=== PATIENT | male | born 1970 | race Caucasian/White ===

== ENCOUNTER 2023-11-24 14:28 | Emergency (ER) | payer OTHER, SELFPAY ==
[2023-11-24 14:30] VITALS: BP 156/89; PULSE 63; RESP 18; TEMP 36.8; O2SAT 98; BMI 25.5
--- NOTE | 2023-11-24 15:36 | EX.ED.GENINJ ---
HPI History of Present Illness Chief Complaint: Laceration [facility] Medical History no medical history Home Medications ?Medication ?Instructions ?Recorded ?Last Taken ?Type sulfamethoxazole 800 1 tab PO BID #14 tabs 11/24/23 Unknown Rx mg-trimethoprim 160 mg tablet (Bactrim DS) Allergy/AdvReac Type Severity Reaction Status Date / Time Penicillins Allergy RASH Verified 11/24/23 14:30 Social History Smoking Status: Never smoker EXAM Physical Exam Const Vital Signs: 11/24/23 14:30 Temperature 98.2 F Temperature Source Temporal Pulse Rate 63 Respiratory Rate 18 Blood Pressure 156/89 H Blood Pressure Mean 111 Pulse Ox 98 Oxygen Delivery Method Room Air MDM [facility] MDM Narrative Medical decision making narrative: HISTORY OF PRESENT ILLNESS: 53-year-old male presents with left thumb/hand injury. Notes he cut his hand with a hook knife while shoeing a horse. Notes he is right-hand dominant. Last tetanus was greater than 5 years ago. REVIEW OF SYSTEMS: Pertinent positives: Hand pain Pertinent negatives: Numbness, tingling, loss of sensation PHYSICAL EXAM: Nursing triage notes reviewed, Vital signs reviewed Constitutional: please see mdm Extremities: No edema Neuro: Intact 5/5 strength with ok sign (median), intact finger abduction (ulnar) intact wrist extension (radial n). Intact sensation in the radial, ulnar, and median nerve distributions. Skin: MEDICAL DECISION MAKING: Chief Complaint: Hand laceration External records reviewed: No recent ED visits Factors affecting care: none Social determinants of health: none History obtained from others: none Consults: none [facility] Narrative: The patient was hemodynamically stable, afebrile and nontoxic-appearing. Exam with linear laceration to left palm open see thenar eminence), no obvious deeper involvement, no tendons involved, no foreign bodies The patient suffered lacerations to the left palm On exam there was no evidence of foreign bodies. There was no evidence of neurovascular injury. Patient had a normal distal vascular exam, and had intact ROM and sensation. There was also no evidence of tendon injury, with normal distal full range of motion, flexion, extension, abduction, abduction. There is no evidence of local joint space involvement at this time. Wound care applied (irrigation and/or local cleansing solution). Laceration repair was then performed please see procedure note. The patient was given signs and symptoms warnings for infection, such as increasing pain, redness, swelling, associated heat, pus or fever. Patient was given instructions for timely follow-up for removal. Patient agreed with the plan of care Procedure: Laceration repair. The procedure was performed by myself. Indication: Wound repair Risks and benefits: risks, benefits and alternatives were discussed Consent: Consent was obtained. Wound Details: Approximate 4 cm linear laceration noted to the thenar eminence, proximal millimeter deep, no foreign bodies noted, no tenderness involvement Anesthesia: 1% lidocaine without epinephrine Wound prep: Patient was prepped and draped in the usual sterile fashion. Tetanus: Updated today Irrigation Solution: Saline Wound Preparation: Irrigated approximately 500 cc of normal saline, cleansed with chlorhexidine The wound was explored to its base in a bloodless field. Procedure Description: A placed eight 5-0 Chromic Gut sutures with close approximation Patient tolerated the procedure well with no immediate complications I updated tetanus, gave oral Bactrim and a prescription for Bactrim for infection prophylaxis. Strict return precautions were discussed. The patient and/or family, caregivers express understanding. The patient and/or family, caregivers agrees with the plan. Shared decision making: I will have a discussion with the patient and or visitors regarding risk/benefits of further testing or admission. They will be made aware of of the risk/benefits inherent in this decision they will be given the opportunity to voice understanding. Total critical care time today provided was at least 0 minutes. This excludes separately billable procedures. Critical care time (if documented) is secondary to the patient having high probability of clinically significant/life threatening deterioration in the patient's condition which required my urgent intervention. Impression: 1. Hand laceration 2. Hand pain Dispo: Discharge home This note was generated with [employer] dictation software. It may contain incorrect words, spelling, and punctuation that were not noted in review of the chart prior to signing. Discharge Plan Triage Chief Complaint: Laceration ED Provider: Santiago Florez Dx/Rx/DC Orders Instructions: ED Laceration Extremity Prescriptions: New sulfamethoxazole-trimethoprim [Bactrim DS] 800-160 mg tablet 1 tab PO BID Qty: 14 0RF Primary Care Provider: Care Physician,No Primary Referrals: Caesar Morillo MD [Med Staff - [employer]] - Activity Restrictions/Additional Instructions: Thank you for trusting us with your care today! Please take Tylenol (2 pills, 650 mg), ibuprofen (2 pills, 400 mg) every 6 hours as needed for pain and fever control. Please take antibiotics daily as prescribed until course complete. Please return to the emergency department if your symptoms change or worsen. Specifically develop redness, white-yellow discharge, warmth, increasing pain disease or signs of infection. Please cleanse your wound daily. For the first 72 hours please use peroxide and topical antimicrobial ointment such as Neosporin. After which time soap and water should suffice. Please follow with your primary care physician for further outpatient evaluation and management. Print Language: Iraqi Disposition Disposition: Home, Self Care
[2023-11-24] MEDS: Diphth,Pertuss(Acell),Tet Vac 0.5 ML Vial IM (16:17)
[2023-11-24] MEDS: Smz/Tmp Ds Tablet 1 TABLET PO (16:17)
== END 2023-11-24 16:47 | disposition home or self-care (01) ==
PROVIDERS: Emergency Provider Emergency Medicine; Visit Provider Emergency Medicine
DX: S61.412A Laceration without foreign body of left hand, initial encounter (principal); W26.0XXA Contact with knife, initial encounter; Z23 Encounter for immunization
CPT/HCPCS: 12002; 90471; 90715; 99283

== ENCOUNTER 2025-01-15 06:52 | Day surgery (SDC) | payer OTHER, SELFPAY ==
[2025-01-15] VITALS (8 sets, daily range): BP systolic 113–125; BP diastolic 77–85; PULSE 54–61; RESP 16; TEMP 36.2–36.4; O2SAT 99–100; BMI 23.8
--- OUTSIDE RECORDS SUMMARY | 2025-01-15 07:00 | XMS RPT_ITS | CCD ---
Author Organization [employer] [facility] Care Team Providers Care Clinical Scientist Name Role Phone FriendKaylaPerico Attending Unavailable Care Physician, No Primary Referring Unava ilable Care Physician, No Primary Primary Care Unava ilable Allergies Allergy Classification Reported Allergen(s) Allergy Type Date of Onset Reaction(s) Facility (1 source) Penicillins Drug allergy (disorder) 01-10-2025 [facility] Repository Encounters Encounter Date Encounter Type Care Provider Facility Start: 01-15-2025 ambulatory Perico Friend Facility :[facility] Payers Date Payer Category Payer Self-pay 2024 Unknown [id number] Unknown [id number] Summary Purpose Family History No Family History Records Found Advance Directives No Advanced Directives Records Found Additional Source Comments (unrecognized sect ion and content) No Status Records Found INFORMATION SOURCE (unrecogn ized section and content) DATE CREATED AUTHOR 01/12/2025 [facility] FOR RECORDS PERTAINING TO PATIENTS WHO ARE OR HAVE BEEN ENROLLED IN A CHEMICAL DEPENDENCY/SUBSTANCEABUSE PROGRAM, SOME INFORMATION MAY BE OMITTED. This clinical summary was aggregated from multiple sources. Caution should be exercised in using it in the provision of clinical care. This summary normalizes information from multiple sources, and as a consequence, information in this document may materially change the coding, format and clinical context of patient data. In addition, data may be omitted in some cases. CLINICAL DECISIONS SHOULD BE BASED ON THE PRIMARY CLINICAL RECORDS. [email or web address] provides no warranty or guarantee of the accuracy or completeness of information in this document.
--- NOTE | 2025-01-15 07:12 | PCM.HP.STD ---
HPI - General General Date of Admission: 01/15/25 Date of Service: 01/15/25 Chief Complaint: Screening colonoscopy HPI Narrative BURT VARMA, is a 54 M who presents today for screening colonoscopy. He does not have abdominal pain. Denies any cramping. He denied of any chest pain or shortness of breath. He does not take any medicines on a daily basis. PENDING SALE TO [facility] Medical History Wears glasses Home Medications ?Medication ?Instructions ?Recorded ?Last Taken ?Type NK 01/10/25 Unknown History Allergy/AdvReac Type Severity Reaction Status Date / Time Penicillins Allergy RASH Verified 01/10/25 14:31 Surgical History History of appendectomy Social History Smoking Status: Never smoker ROS Constitutional Constitutional: Denies fatigue, fever(s), poor appetite, weight gain or weight loss Gastrointestinal Gastrointestinal: Denies belching, bloating, change in bowel habits, change in stool character, chewing difficulty, coffee ground emesis, constipation, cramping, diarrhea, dyspepsia, dysphagia, early satiety, excessive flatus, fecal incontinence, heartburn, hematemesis, hematochezia, hemorrhoids, loose stools, melena, nausea, odynophagia, rectal bleeding, tenesmus, vomiting or weight changes Physical Exam Const alert, oriented x3, no apparent distress and healthy appearing General Appearance: cooperative GI normal to inspection, nondistended, normoactive bowel sounds, soft to palpation, non-tender and non-distended Percussion: normal to percussion Rectal Exam: deferred Assessment & Plan Assessment/Plan (1) Encounter for screening colonoscopy: PLAN: He was explained alternatives, risk and benefits include not withstanding bleeding, infection, sepsis, perforation, need for change and . He we will have an ASA of 3.
[2025-01-15] MEDS: Lactated Ringers 1,000 ML 15 ML IV (07:17)
--- NOTE | 2025-01-15 07:34 | PCM.PRE.AN2 ---
ASA Classification* ASA Classification ASA Classification: 1 Assessment & Plan Anesthesia* Anesthesia Assessment Anesthesia Assessment: Discussed sedation and/or anesthesia options, risks, benefits, and alternatives with patient/parents/legal guardian/POA. Questions invited. The patient/parents/legal guardian/POA seems to understand and agrees to proceed with anesthesia plan. Reviewed the physical assessment, medical history, allergy history and patient home medications list prior to surgery/procedure/anesthetic and documented any changes. Performed airway and anesthesia risk assessments. Anesthesia Type Anesthesia Type: MAC History Source History Obtained from:: Patient and Chart Anesthesia Focused Assessment* Temperature: 97.5 F Pulse Rate: 60 Blood Pressure: 125/81 Respiratory Rate: 16 Pulse Ox: 100 Oxygen Delivery Method: Room Air Airway Assessment Mouth opens: >3 cm Mallampati Score: II Teeth Condition: Intact Neck Range of motion (ROM): Full ROM Labs Anesthesia Preop lab: CBC CHEMISTRY COAG Pre-Assessment Diagnosis/Proposed Procedure Planned Operative Procedure(s): COLONOSCOPY Anesthesia History Anesthesia History - health inspector food: Anesthesia History - health inspector food Hx Hospitalization No 01/10/25 14:31 Any Problems With Anesthesia No 01/10/25 14:31 Cholinesterase deficiency No 01/10/25 14:31 You/Your Family Experience No 01/10/25 14:31 fever (hyperthermia) with Relationship Recent Exposure to Contagious No 01/15/25 07:14 Disease Does patient have nerve No 01/10/25 14:31 stimulator Patient instructed to have device shut off --Does patient have Pacemaker No 01/15/25 07:15 or ICD? When Was Last Pacemaker Check QUESTION #4 FULL TEXT: You/Your Family Experience fever (hyperthermia) with Anesthesia Last Oral Intake Last Oral intake: Last Oral Intake NPO since 00:00 01/15/25 07:15 Meds taken in AM with sips of water? Meds patient instructed to take am of surgery PONV PONV - health inspector food: PONV - health inspector food Female No 01/10/25 14:31 HX of Motion Sickness No 01/10/25 14:31 HX of N/V After Surgery No 01/10/25 14:31 Non-Smoker Yes 01/10/25 14:31 Duration of Surgery greater No 01/10/25 14:31 than 60 minutes Number of Risk Factors 1 01/10/25 14:31 PONV Score Low Risk 01/10/25 14:31 Height & Weight Height & Weight: Anesthesia: Height & Weight Height 6 ft 4 in 01/15/25 07:15 Weight: 89 kg 01/15/25 07:15 Body Mass Index (BMI) 23.8 01/15/25 07:15 Respiratory Assessment Respiratory Assessment - health inspector food: Respiratory Tract Infection Hx - health inspector food Hx Respiratory Tract Infection No 01/10/25 14:31 STOP Sleep Apnea STOP Sleep Apnea - health inspector food: STOP Sleep Apnea - health inspector food Hx Hypertension No 01/10/25 14:31 Hx Sleep Apnea No 01/10/25 14:31 CPAP BIPAP Do you snore loudly (louder Yes 01/10/25 14:31 than talking or can be heard Do you often feel tired/ No 01/10/25 14:31 fatigued/ sleepy during daytime? Has anyone observed you stop No 01/10/25 14:31 breathing during sleep? STOP Results Negative 01/10/25 14:31 QUESTION #5 FULL TEXT : Do you snore loudly (louder than talking or can be heard through closed doors)? 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 Specify any problems Hx of Preganancy in last 3 N/A 01/10/25 14:31 Months Nurse Filling Out Transfusion [email or web address] 01/10/25 14:31 & Questions: Date: 01/10/25 01/10/25 14:31 Time: 14:33 01/10/25 14:31 Patient unable to answer at this time (ie. confused, unrespo /Reproduction History /Reproductive History - health inspector food: /Reproductive Hx- health inspector food Hx Now Gestational Age (in weeks): EDC: Hx Hx Para Hx Section SAB Active Medications Active Medications: Current Medications Generic Name Dose Route Start Last Admin Trade Name Freq PRN Reason Stop Dose Admin Lactated Ringer's 1,000 mls @ 15 mls/hr 01/15/25 07:00 01/15/25 07:17 IV 15 mls/hr .Q48H KAIT Administration PFSH Medical History Wears glasses Home Medications ?Medication ?Instructions ?Recorded ?Last Taken ?Type NK 01/10/25 Unknown History Allergy/AdvReac Type Severity Reaction Status Date / Time Penicillins Allergy RASH Verified 01/10/25 14:31 Surgical History History of appendectomy Social History Smoking Status: Never smoker Review of Systems (Anesthesia) ROS Narrative System reviewed and no additional complaints, except as documented.
--- NOTE | 2025-01-15 08:42 | PCM.POST.ANE ---
Anesthesia: Postop Eval I Current Vital Signs Temperature: 97.1 F Pulse Rate: 60 Blood Pressure: 113/79 Respiratory Rate: 16 Pulse Ox: 99 Oxygen Delivery Method: Room Air Assessment Airway patent: Yes Spontaneous unlabored respirations: Yes Mental status: Asleep nausea: No Vomiting: No Anesthesia Complication: No Fluid Hydration Crystalloid volume administer (ml): 800 Total IV fluid infused: 800 Progress Note Anesthesia document: Postop Eval 1 completed: Yes
--- NOTE | 2025-01-15 08:43 | OP.COLON_ITS ---
Patient Name: Eusebio Castañeda Procedure Date: 01/15/2025 8:15 AM Date of : 1970 Age: 54 Procedure: Colonoscopy Indications: Screening for colorectal malignant neoplasm Providers: Perico Toscano DO Referring MD: No Primary Care Physician Medicines: Monitored Anesthesia Care Patient Profile: This is a 54 year old male. Refer to note in patient chart for documentation of history and physical. Last Colonoscopy: none. The patient's first colonoscopy is today. Complications: No immediate complications. Procedure: Pre-Anesthesia Assessment: - Prior to the procedure, a History and Physical was performed, and patient medications and allergies were reviewed. The patient is competent. The risks and benefits of the procedure and the sedation options and risks were discussed with the patient. All questions were answered and informed consent was obtained. Patient identification and proposed procedure were verified by the physician in the pre-procedure area. Mental Status Examination: alert and oriented. Airway Examination: normal oropharyngeal airway and neck mobility. Respiratory Examination: clear to auscultation. CV Examination: normal. Prophylactic Antibiotics: The patient does not require prophylactic antibiotics. Prior Anticoagulants: The patient has taken no anticoagulant or antiplatelet agents except for NSAID medication. ASA Grade Assessment: II - A patient with mild systemic disease. After reviewing the risks and benefits, the patient was deemed in satisfactory condition to undergo the procedure. The anesthesia plan was to use monitored anesthesia care (MAC). Immediately prior to administration of medications, the patient was re-assessed for adequacy to receive sedatives. The heart rate, respiratory rate, oxygen saturations, blood pressure, adequacy of pulmonary ventilation, and response to care were monitored throughout the procedure. The physical status of the patient was re-assessed after the procedure. After I obtained informed consent, the scope was passed under direct vision. Throughout the procedure, the patient's blood pressure, pulse, and oxygen saturations were monitored continuously. The colonoscope was introduced through the anus and advanced to the cecum, identified by the appendiceal orifice, ileocecal valve and palpation. The colonoscopy was performed without difficulty. The patient tolerated the procedure well. The quality of the bowel preparation was adequate. The ileocecal valve, appendiceal orifice, and rectum were photographed. Scope In: 8:19:07 AM Scope Withdrawal Time 0 hours 11 minutes 55 seconds Scope Out: 8:35:52 AM Total Procedure Duration Time 0 hours 16 minutes 45 seconds Findings: The perianal and digital rectal examinations were normal. A few small-mouthed diverticula were found in the recto-sigmoid colon. The exam was otherwise without abnormality on direct and retroflexion views. Impression: - Diverticulosis in the recto-sigmoid colon. - The examination was otherwise normal on direct and retroflexion views. - No specimens collected. Recommendation: - Discharge patient to home. - Resume previous diet. - Continue present medications. - Repeat colonoscopy in 10 years for screening purposes. Procedure Code(s): --- Professional --- G0121, Colorectal cancer screening; colonoscopy on individual not meeting criteria for high risk CPT copyright 2021 [employer]. All rights reserved. The codes documented in this report are preliminary and upon braille coder review may be revised to meet current compliance requirements. Perico Toscano DO 01/15/2025 8:42:31 AM This report has been signed electronically. Number of Addenda: 0 Note Initiated On: 01/15/2025 8:15 AM
--- NOTE | 2025-01-15 08:43 | OP.PROVAT_ITS ---
01/15/2025 No Primary Care Physician Re : Colonoscopy procedure for Eusebio Castañeda [facility] Care Physician This procedure was performed on Wednesday, January 15, 2025. My impressions and recommendations are as follows: Impressions : - Diverticulosis in the recto-sigmoid colon. - The examination was otherwise normal on direct and retroflexion views. - No specimens collected. Recommendations : - Discharge patient to home. - Resume previous diet. - Continue present medications. - Repeat colonoscopy in 10 years for screening purposes. My findings are described in the full procedure note, which is enclosed. If I can be of further assistance, please feel free to contact me at . Sincerely, Perico Toscano, 01/15/2025 8:42:31 AM This report has been signed electronically.
--- NOTE | 2025-01-15 09:40 | PCM.POSTANE2 ---
Anesthesia Postop Eval I Sum Postop Eval Completion status Anesthesia document: Postop Eval 1 completed: Yes Anesthesia Postop Eval I Summary Anesthesia Postop Eval I Summary: Anesthesia Postop Eval I: Assessment Summary Airway patent Yes 01/15/25 08:43 [email or web address] Spontaneous unlabored Yes 01/15/25 08:43 [email or web address] respirations Mental status Asleep 01/15/25 08:43 [email or web address] nausea No 01/15/25 08:43 [email or web address] Vomiting No 01/15/25 08:43 [email or web address] Anesthesia Postop Eval I: Fluid Summary Crystalloid volume administer 800 01/15/25 08:43 [email or web address] (ml) Colloids volume administered ( ml) Blood Product volume administered (ml) Total IV fluid infused 800 01/15/25 08:43 [email or web address] Anesthesia Postop Eval I: Summary Notes Anesthesia Complication No 01/15/25 08:43 [email or web address] Anesthesia Complication Comment: Post-operative progress note Anesthesia: Postop Eval II Evaluation Mental status: Awake and Calm Pain Level: 1 nausea: No Vomiting: No Complications Anesthesia Complication: No
== END 2025-01-15 09:34 | disposition home or self-care (01) ==
LOC: EN 06:55 → AC 06:56
PROVIDERS: Visit Provider Internal Medicine Gastroenterology
PROC: 0DJD8ZZ Inspection of Lower Intestinal Tract, Via Natural or Artificial Opening Endoscopic (ICD-10-PCS; CPT 45378; principal; 2025-01-15 07:55)
DX: Z12.11 Encounter for screening for malignant neoplasm of colon (principal); K57.90 Diverticulosis of intestine, part unspecified, without perforation or abscess without bleeding
CPT/HCPCS: 45378; J2405